=== PATIENT | female | born 1975 | race American Indian/Alaskan Native ===

== ENCOUNTER 2017-12-24 07:43 | Emergency (ER) | payer OTHER ==
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
[2017-12-24] MEDS ORDERED: TORADOL IM ONE (09:32)
[2017-12-24] MEDS ORDERED: CATAPRES PO ONE (09:33)
[2017-12-24 11:12] VITALS: BP 160/98
== END 2017-12-24 11:20 | disposition home or self-care (01) ==
LOC: ED 07:43
DX: M54.5 Low back pain (principal); M62.830 Muscle spasm of back; R03.0 Elevated blood-pressure reading, without diagnosis of hypertension
CPT/HCPCS: 96372; 99282; J1885